=== PATIENT | male | born 1990 | race Caucasian/White ===

== ENCOUNTER 2017-05-21 01:03 | Emergency (ER) | payer BC, OTHER ==
[2017-05-21 01:13] VITALS: RESP 16; TEMP 98.1; O2SAT 96
[2017-05-21 01:57] LABS: COLOR YELLOW; LEUKOCYTE ESTERASE,URINE NEGATIVE (NEGATIVE); NITRITE,URINE NEGATIVE (NEGATIVE)
[2017-05-21 02:01] LABS: MUCUS TRACE /lpf (NONE-1+)
--- NOTE | 2017-05-21 02:32 | EDPHY ---
H & P Time Seen by Provider: 05/21/17 01:34 HPI/ROS: HPI Left testicular swelling. 26-year-old male by private vehicle. He reports that tonight he noticed left testicular swelling and some discomfort that he describes as a fluid like sensation and fullness. He denies significant pain. There is no history of trauma. Denies penile discharge. No gross hematuria. No discoloration of the testicle. He reports that he has noticed this swelling in the past but has not had it evaluated. He has no other complaint. ROS: Constitutional: No fever, no chills. No weakness. Respiratory: No cough. No shortness of breath. Cardiac: No chest pain, no palpitations. Gastrointestinal: No abdominal pain, no vomiting, no diarrhea. Genitourinary: No hematuria. No dysuria or increased frequency with urination. As above. Musculoskeletal: No back pain. No neck pain. No myalgias or arthralgias. Skin: No rashes. Neurological: No headache. No focal weakness or altered sensation. Past medical history: He denies any significant past medical history. Social history: Here by himself. Nonsmoker. No alcohol. Physical Exam: General Appearance: Alert, no distress. This patient is responding to questions appropriately and in full sentences. This patient appears well- hydrated and well-nourished. Eyes: Pupils equal and round no pallor or injection. No lid edema, erythema or injection. Testicular exam: Normal testicular lie. The testicles are nontender on palpation. No masses appreciated. No clinical evidence of torsion. Normal circumcised penis. No lesions. No discharge from the penile meatus. Gastrointestinal: Abdomen is soft and nontender, no masses, bowel sounds normal. No focal tenderness at McBurney's point. No Lacey sign. Neurological: Motor sensory function is grossly intact. Cranial nerves are normal. Gait is normal. Skin: Warm and dry, no rashes. Musculoskeletal: Neck is supple and nontender. Extremities are symmetrical. All joints range without pain or impingement. Psychiatric: No agitation. No depression. Database: EKG: Imaging: Testicular ultrasound: Moderate left-sided hydrocele and small varicocele. No evidence of torsion. No other pathology. Results were discussed with staff radiologist Dr. Vazquez Frias. Procedures: Emergency department course: Vital signs reviewed and are normal. Patient had an ultrasound of his testicle shortly after arrival. Results of ultrasound and diagnosis discussed with him. I discussed wearing supportive briefs as well as the importance of urology follow-up. Return to emergency department precautions were reviewed thoroughly with him. He feels comfortable going home. He is not in any pain. All of his questions were answered. He was discharged in good condition. Differential Diagnosis: The differential diagnosis on this patient includes but is not limited to testicular hydrocele, testicular varicocele. Testicular torsion, epididymitis, testicular trauma, STD unlikely. This represents a partial list of diagnoses considered. These considerations are based on history, physical exam, past history, reassessment and diagnostic testing. Smoking Status: Never smoked Constitutional: Initial Vital Signs Temperature (C) 36.7 C 05/21/17 01:07 Heart Rate 67 05/21/17 01:07 Respiratory Rate 16 05/21/17 01:07 Blood Pressure 130/92 H 05/21/17 01:07 O2 Sat (%) 96 05/21/17 01:07 O2 Delivery Mode Room Air Allergies/Adverse Reactions: No Known Allergies Allergy (Verified 05/21/17 01:07) Home Medications: Medication Instructions Recorded NK [No Known Home Meds] 10/03/15 Medical Decision Making - Data Points Laboratory Results: 05/21/17 05/21/17 01:45 01:45 Urine Color YELLOW Urine Appearance CLEAR Urine pH 5.0 (5.0-7.5) Ur Specific [place] 1.019 (1.002-1.030) Urine Protein NEGATIVE (NEGATIVE) Urine Ketones NEGATIVE (NEGATIVE) Urine Blood NEGATIVE (NEGATIVE) Urine Nitrate NEGATIVE (NEGATIVE) Urine Bilirubin NEGATIVE (NEGATIVE) Urine Urobilinogen NEGATIVE EU EU (0.2-1.0) Ur Leukocyte Esterase NEGATIVE (NEGATIVE) Urine RBC 1-3 /hpf /hpf (0-3) Urine WBC 1-3 /hpf /hpf (0-3) Ur Epithelial Cells NONE SEEN /lpf /lpf (NONE-1+) Urine Mucus TRACE /lpf /lpf (NONE-1+) Urine Glucose NEGATIVE (NEGATIVE) C.trachomatis RNA (TMA) Pending N.gonorrhoeae RNA (TMA) Pending Departure - Departure Disposition: Home, Routine, Self-Care Clinical Impression: Hydrocele, Varicocele Condition: Good Instructions: Hydrocele (ED), Varicocele (ED), Testicle Pain (ED) Additional Instructions: Read and follow provided instructions. Follow-up with Urology as discussed this week for re-evaluation. Return to the emergency department for worsening pain, swelling or other serious concerns. Referrals: Tony Hernandez MD [Medical Doctor] - As per Instructions Amira Westbrook MD [Medical Doctor] - As per Instructions
[2017-05-21 02:39] VITALS: BP 135/72; PULSE 70
[2017-05-21 11:49] LABS: CHLAMYDIA AMPLIFICATION GENPRB NEGATIVE (NEGATIVE)
== END 2017-05-21 02:49 | disposition home or self-care (01) ==
DX: I86.1 Scrotal varices (principal); N43.3 Hydrocele, unspecified